=== PATIENT | female | born 1980 | race Caucasian/White ===

== ENCOUNTER 2017-12-23 09:23 | Day surgery (SDC) | payer OTHER ==
[~2017-12-23] VITALS: Ht 160 cm; Wt 74.4 kg
[~2017-12-23 09:23] MED LIST: ARIP10 PO; CEPH500 PO; HYDACE5 PO; LORA10 PO; RIZATRIPTAN10 M1 PO; RXCEPH500 PO; Xanax0.5 MG PO
== END 2017-12-23 13:08 | disposition home or self-care (01) ==
LOC: ORSCMMR 09:23
PROVIDERS: Obstetrics & Gynecology
PROC: 0UT74ZZ Resection of Bilateral Fallopian Tubes, Percutaneous Endoscopic Approach (ICD-10-PCS; principal; 2017-12-23 10:00)
PROC: 0UT14ZZ Resection of Left Ovary, Percutaneous Endoscopic Approach (ICD-10-PCS; principal; 2017-12-23 10:00)
DX: R10.2 Pelvic and perineal pain (principal); Z87.42 Personal history of other diseases of the female genital tract; N73.6 Female pelvic peritoneal adhesions (postinfective); F17.210 Nicotine dependence, cigarettes, uncomplicated
CPT/HCPCS: 88305; J0171; J1100; J2250; J2405; J2710; J2765; J3010; J7120

== ENCOUNTER 2018-03-21 20:57 | Emergency (ER) | payer OTHER ==
[~2018-03-21] VITALS: Ht 160 cm; Wt 73.0 kg
[2018-03-21 22:10] LABS: Source, Urine Clean Catch
[2018-03-21 22:12] LABS: Bilirubin, Urine Neg (Neg); Blood, Urine Neg (Neg); Glucose Qualitative, Urine Neg (Neg); Ketones, Urine Neg (Neg); Leukocyte Esterase, Urine Neg (Neg); Nitrite, Urine Neg (Neg); Protein, Urine Neg (Neg); Specific Gravity, Urine 1.015 (1.003-1.022); Urobilinogen, Urine NORM (Normal)
[2018-03-21 22:19] LABS: Appearance, Urine Clear (Clear); Color, Urine Yellow (P-Yellow)
== END 2018-03-21 23:50 | disposition home or self-care (01) ==
LOC: ER 20:57
DX: R14.0 Abdominal distension (gaseous) (principal); Z88.0 Allergy status to penicillin; Z88.8 Allergy status to other drugs, medicaments and biological substances
CPT/HCPCS: 36415; 81003; 81025; 96360; 99283; J7030

== ENCOUNTER → 2018-03-21 | Outpatient (CLI) | payer OTHER ==
[2018-03-21 19:24] LABS: BASOPHILS ABSOLUTE AUTO 0.03 K/mm3 (0.00-0.23); BASOPHILS PERCENT AUTO 0 % (0-2); EOSINOPHILS ABSOLUTE AUTO 0.12 K/mm3 (0.00-0.68); EOSINOPHILS PERCENT AUTO 1 % (0-6); Hematocrit 36.5 % (33.0-51.0); Hemoglobin 12.4 g/dL (11.5-16.0); IMMATURE GRAN ABSOLUTE AUTO 0.02 K/mm3 (0.00-0.10); IMMATURE GRAN PERCENT AUTO 0 % (0-1); LYMPHOCYTES ABSOLUTE AUTO 2.03 K/mm3 (0.84-5.20); LYMPHOCYTES PERCENT AUTO 21 % (21-46); MONOCYTES PERCENT AUTO 4 % (4-13); Mean Corpuscular HGB 28.4 pg (26.0-34.0); Mean Corpuscular Volume 84 fL (80-100); Mean Platelet Volume 10.7 fL (9.1-12.4); NEUTROPHILS ABSOLUTE AUTO 6.89 K/mm3 (1.96-9.15); NEUTROPHILS PERCENT AUTO 73 % (41-73); Platelet Count 320 K/mm3 (150-400); RDW Standard Deviation 39.2 fL (35.1-46.3); Red Blood Cell Count 4.37 M/mm3 (3.80-5.20); White Blood Cell Count 9.49 K/mm3 (4.00-11.30)
[2018-03-21 19:43] LABS: Alanine Aminotransfer (ALT/SGP 17 U/L (12-78); Albumin, Blood 3.9 g/dL (3.4-5.0); Alk Phos 89 U/L (40-126); Anion Gap 9 mmol/L (6-16); Aspartate Aminotrans (AST/SGOT 12 U/L (12-37); Bilirubin, Total 0.3 mg/dL (0.1-1.0); Blood Urea Nitrogen 12 mg/dL (8-24); Bun/Creatinine Ratio 13.2 (12.0-20.0); CO2, Blood 28 mmol/L (21-32); Calcium, Blood 9.2 mg/dL (8.5-10.1); Chloride, Blood 104 mmol/L (98-108); Creatinine, Blood 0.91 mg/dL (0.40-1.00); Glomerular Filtration Rate >60 (60-); Glucose, Blood 104 mg/dL (70-99); Potassium, Blood 3.6 mmol/L (3.5-5.5); Sodium, Blood 141 mmol/L (136-145); Thyroid Stimulating Hormone 2.711 uIU/mL (0.360-4.800); Total Protein, Blood 7.9 g/dL (6.4-8.2)
== END ==
LOC: LAB SHORT 19:18 → LAB EV 19:18
PROVIDERS: Physician Assistant
DX: R10.9 Unspecified abdominal pain (principal); R53.83 Other fatigue
CPT/HCPCS: 80053; 84443; 85025

== ENCOUNTER → 2018-07-17 | Outpatient (CLI) | payer OTHER | LOC: LAB EV 17:50 → LAB SHORT 17:50 | DX: N30.01 Acute cystitis with hematuria (principal) | CPT/HCPCS: 87077; 87086; 87186 ==

== ENCOUNTER 2019-02-09 11:13 | Day surgery (SDC) | payer OTHER ==
[~2019-02-09] VITALS: Ht 160 cm; Wt 71.6 kg
--- NOTE | 2019-02-09 12:24 | NUR ---
Ambulatory in Day Surgery Lungs clear T/O to Auscultation. History, Chart, Medications and Allergies reviewed before start of procedure. Patient confirms NPO status and agrees with scheduled surgery. Patient States Post-Procedure ride home has been arranged.
--- NOTE | 2019-02-09 16:48 | NUR ---
1453 recieved patient from pacu, awake, smiling states no pain. scant vaginal bleeding, po fluids given,aleisha well. 1510 bladder trial begun 300 cc of sterile water slowly pushed into bladder. 300cc sterile water in and 200 cc red urine out. 1 large clot noted. Pt states no pain. 400cc yellow urine in arriaga catheter. 1600 pt ambulate to bathroom steady on feet, voided pink urine. 1610 dc instructs given, pt and spouse verbalize understanding
--- NOTE | 2019-02-10 08:57 | NUR ---
02/10/19 0857 Jaquelin Collins VERIFICATIONS: EDIT CHART.
== END 2019-02-09 22:51 | disposition home or self-care (01) ==
LOC: ORSCMMR 11:13 → ORD 11:30 → ORSCMMR 12:30
PROVIDERS: Obstetrics & Gynecology
PROC: 0TSD0ZZ Reposition Urethra, Open Approach (ICD-10-PCS; principal; 2019-02-09 13:30)
DX: N39.3 Stress incontinence (female) (male) (principal); Z86.73 Personal history of transient ischemic attack (TIA), and cerebral infarction without residual deficits; Z87.891 Personal history of nicotine dependence; Z79.899 Other long term (current) drug therapy
CPT/HCPCS: C1771; J1100; J1885; J1956; J2250; J2370; J2405; J3010; J7120

== ENCOUNTER → 2019-05-19 | Outpatient (CLI) | payer OTHER ==
[2019-05-21 13:07] LABS: HPV 16 Negative (Negative); HPV 18 Negative (Negative); HPV OTHER HR TYPES Negative (Negative)
== END | disposition home or self-care (01) ==
LOC: LAB 12:25 → LAB SHORT 12:25
PROVIDERS: Obstetrics & Gynecology
DX: Z01.419 Encounter for gynecological examination (general) (routine) without abnormal findings (principal); Z87.410 Personal history of cervical dysplasia
CPT/HCPCS: 87624; G0123

== ENCOUNTER → 2019-09-25 | Outpatient (CLI) | payer OTHER ==
[2019-09-25 08:23] LABS: BASOPHILS ABSOLUTE AUTO 0.03 K/mm3 (0.00-0.23); BASOPHILS PERCENT AUTO 0 % (0-2); EOSINOPHILS ABSOLUTE AUTO 0.12 K/mm3 (0.00-0.68); EOSINOPHILS PERCENT AUTO 1 % (0-6); Hematocrit 37.6 % (33.0-51.0); Hemoglobin 12.4 g/dL (11.5-16.0); IMMATURE GRAN ABSOLUTE AUTO 0.04 K/mm3 (0.00-0.10); IMMATURE GRAN PERCENT AUTO 0 % (0-1); LYMPHOCYTES ABSOLUTE AUTO 1.43 K/mm3 (0.84-5.20); LYMPHOCYTES PERCENT AUTO 13 % (21-46); MONOCYTES ABSOLUTE AUTO 0.55 K/mm3 (0.16-1.47); MONOCYTES PERCENT AUTO 5 % (4-13); Mean Corpuscular HGB 28.3 pg (26.0-34.0); Mean Corpuscular Volume 86 fL (80-100); Mean Platelet Volume 10.9 fL (9.1-12.4); NEUTROPHILS ABSOLUTE AUTO 8.92 K/mm3 (1.96-9.15); NEUTROPHILS PERCENT AUTO 80 % (41-73); Platelet Count 301 K/mm3 (150-400); RDW Coefficient Variation 12.7 % (11.7-14.2); RDW Standard Deviation 39.4 fL (35.1-46.3); Red Blood Cell Count 4.38 M/mm3 (3.80-5.20); White Blood Cell Count 11.09 K/mm3 (4.00-11.30)
[2019-09-25 08:35] LABS: Alanine Aminotransfer (ALT/SGP 11 U/L (12-78); Albumin, Blood 3.6 g/dL (3.4-5.0); Albumin/Globulin Ratio 0.8 (0.8-1.8); Alk Phos 92 U/L (40-126); Anion Gap 9 mmol/L (6-16); Aspartate Aminotrans (AST/SGOT 13 U/L (12-37); Bilirubin, Total 0.5 mg/dL (0.1-1.0); Blood Urea Nitrogen 10 mg/dL (8-24); CO2, Blood 26 mmol/L (21-32); CPK Creatine Kinase 53 U/L (26-192); Calcium, Blood 8.8 mg/dL (8.5-10.1); Chloride, Blood 105 mmol/L (98-108); Creatinine, Blood 0.77 mg/dL (0.40-1.00); Globulin, Blood 4.3 g/dL (2.2-4.0); Glomerular Filtration Rate >60 (60-); Glucose, Blood 101 mg/dL (70-99); Potassium, Blood 3.9 mmol/L (3.5-5.5); Sodium, Blood 140 mmol/L (136-145); Total Protein, Blood 7.9 g/dL (6.4-8.2); Troponin I <0.017 ng/mL (0.000-0.040)
== END | disposition home or self-care (01) ==
LOC: LAB EV 08:16 → LAB SHORT 08:16
PROVIDERS: General Practice
DX: R07.9 Chest pain, unspecified (principal)
CPT/HCPCS: 80053; 82550; 84484; 85025; 85379

== ENCOUNTER 2021-09-30 00:04 | Emergency (ER) | payer OTHER ==
[~2021-09-30] VITALS: Ht 160 cm; Wt 79.4 kg
[2021-09-30] MEDS ORDERED: CYCL10 PO (01:54)
[2021-09-30] MEDS ORDERED: GABA300 PO (01:59)
[2021-09-30] MEDS ORDERED: ESTRADIOL1 EAC2 TOP (02:00)
[2021-09-30] MEDS ORDERED: DULO30 PO (02:00)
[2021-09-30] MEDS ORDERED: Prevacid Soluta30 MG PO (02:00)
== END 2021-09-30 02:00 | disposition home or self-care (01) ==
LOC: ER 00:04
DX: M54.50 Low back pain, unspecified (principal); R07.89 Other chest pain; M06.9 Rheumatoid arthritis, unspecified; Z87.891 Personal history of nicotine dependence; Z88.0 Allergy status to penicillin; V89.2XXA Person injured in unspecified motor-vehicle accident, traffic, initial encounter
CPT/HCPCS: 71046; 72100; 93005; 93010; 99283-25

== ENCOUNTER → 2022-02-06 | Outpatient (CLI) | payer OTHER ==
[~2022-02-06] MED LIST changes: +CYCL10 PO; +DULO30 PO; +ESTRADIOL1 EAC2 TOP; +GABA300 PO; +Prevacid Soluta30 MG PO
[2022-02-07 16:11] LABS: HPV 16 Negative (Negative); HPV 18 Negative (Negative); HPV OTHER HR TYPES Negative (Negative)
== END | disposition home or self-care (01) ==
LOC: LAB SHORT 11:43 → LAB 11:43
PROVIDERS: Obstetrics & Gynecology
DX: Z01.419 Encounter for gynecological examination (general) (routine) without abnormal findings (principal)
CPT/HCPCS: 87624; G0123

== ENCOUNTER 2022-05-15 16:20 | Emergency (ER) | payer OTHER ==
[~2022-05-15] VITALS: Ht 160 cm; Wt 77.1 kg
[2022-05-15] MEDS ORDERED: KETO10 PO (17:38)
== END 2022-05-15 17:47 | disposition home or self-care (01) ==
LOC: ER 16:20
DX: M79.674 Pain in right toe(s) (principal); I77.6 Arteritis, unspecified; Z88.0 Allergy status to penicillin; Z88.8 Allergy status to other drugs, medicaments and biological substances; Z79.899 Other long term (current) drug therapy; Z87.891 Personal history of nicotine dependence
CPT/HCPCS: 96372; 99282-25; J1885

== ENCOUNTER 2022-07-09 15:28 | Emergency (ER) | payer OTHER ==
[~2022-07-09] VITALS: Ht 160 cm; Wt 79.4 kg
[~2022-07-09 15:28] MED LIST changes: +KETO10 PO
[2022-07-09] MEDS ORDERED: DULO30 PO (15:40)
== END 2022-07-09 15:45 | disposition home or self-care (01) ==
LOC: ER 15:28
DX: Z76.0 Encounter for issue of repeat prescription (principal); F41.9 Anxiety disorder, unspecified; M06.9 Rheumatoid arthritis, unspecified; Z79.899 Other long term (current) drug therapy; Z88.0 Allergy status to penicillin; Z88.8 Allergy status to other drugs, medicaments and biological substances; Z87.891 Personal history of nicotine dependence
CPT/HCPCS: 99281

== ENCOUNTER 2022-07-27 09:30 | Emergency (ER) | payer OTHER ==
[~2022-07-27] VITALS: Ht 160 cm; Wt 77.1 kg
[2022-07-27 11:19] LABS: Albumin, Blood 3.3 g/dL (3.4-5.0); Albumin/Globulin Ratio 0.8 (0.8-1.8); Bilirubin, Total 0.3 mg/dL (0.1-1.0); Bun/Creatinine Ratio 20.8 (12.0-20.0); Calcium, Blood 9.3 mg/dL (8.5-10.1); Creatinine, Blood 0.58 mg/dL (0.40-1.00); Globulin, Blood 4.4 g/dL (2.2-4.0); Total Protein, Blood 7.7 g/dL (6.4-8.2)
[2022-07-27 11:30] LABS: BASOPHILS ABSOLUTE AUTO 0.03 K/mm3 (0.00-0.23); BASOPHILS PERCENT AUTO 0 % (0-2); EOSINOPHILS ABSOLUTE AUTO 0.08 K/mm3 (0.00-0.68); EOSINOPHILS PERCENT AUTO 1 % (0-6); Hematocrit 34.7 % (33.0-51.0); Hemoglobin 11.5 g/dL (11.5-16.0); IMMATURE GRAN ABSOLUTE AUTO 0.02 K/mm3 (0.00-0.10); IMMATURE GRAN PERCENT AUTO 0 % (0-1); LYMPHOCYTES PERCENT AUTO 18 % (21-46); MONOCYTES ABSOLUTE AUTO 0.36 K/mm3 (0.16-1.47); MONOCYTES PERCENT AUTO 5 % (4-13); Mean Corpuscular HGB Conc 33.1 g/dL (31.5-36.5); Mean Corpuscular Volume 87 fL (80-100); Mean Platelet Volume 9.8 fL (9.1-12.4); NEUTROPHILS PERCENT AUTO 75 % (41-73); Platelet Count 272 K/mm3 (150-400); RDW Coefficient Variation 12.9 % (11.7-14.2); RDW Standard Deviation 40.9 fL (35.1-46.3); Red Blood Cell Count 3.97 M/mm3 (3.80-5.20); White Blood Cell Count 7.19 K/mm3 (4.00-11.30)
[2022-07-27 12:12] LABS: Source, Urine Clean Catch
[2022-07-27 12:25] LABS: Appearance, Urine Hazy (Clear); Bilirubin, Urine Neg (Neg); Blood, Urine Neg (Neg); Color, Urine Yellow (P-Yellow); Glucose Qualitative, Urine Neg (Neg); Ketones, Urine Neg (Neg); Leukocyte Esterase, Urine Neg (Neg); Nitrite, Urine Neg (Neg); Protein, Urine Neg (Neg); Urobilinogen, Urine NORM (Normal)
[2022-07-27 13:06] LABS: Red Blood Cells, Urine 0-2 /hpf (0-2); Squamous Epithelial Cells Many /hpf (Few)
[2022-07-27 13:07] LABS: Bacteria Few /hpf
== END 2022-07-27 14:11 | disposition home or self-care (01) ==
LOC: ER 09:30
PROVIDERS: Emergency Medicine; Physician Assistant
DX: M54.50 Low back pain, unspecified (principal); Z88.0 Allergy status to penicillin; Z88.8 Allergy status to other drugs, medicaments and biological substances; Z79.899 Other long term (current) drug therapy; Z87.891 Personal history of nicotine dependence
CPT/HCPCS: 36415; 74176; 80053; 81001; 81025; 83690; 85025; J1885; J2405; J7030

== ENCOUNTER → 2022-08-13 | Outpatient (CLI) | payer OTHER | END | disposition home or self-care (01) | LOC: LAB 17:10 → LAB SHORT 17:10 | DX: N39.0 Urinary tract infection, site not specified (principal) | CPT/HCPCS: 87077; 87086; 87186 ==

== ENCOUNTER 2022-09-11 11:26 | Inpatient (IN) | payer OTHER ==
[~2022-09-11] VITALS: Ht 160 cm; Wt 82.5 kg
[~2022-09-11 11:26] MED LIST changes: +ESTR2 PO; -ESTRADIOL1 EAC2 TOP
[2022-09-11] MEDS ORDERED: Celexa20 MG PO (11:35)
[2022-09-11 12:25] LABS: Influenza A, PCR NEGATIVE (NEGATIVE); Influenza B, PCR NEGATIVE (NEGATIVE); Resp Syncytial Virus, PCR NEGATIVE (NEGATIVE); SARS-Cov-2 (COVID-19) PCR, MMC NEGATIVE (NEGATIVE)
[2022-09-11 13:39] LABS: BASOPHILS ABSOLUTE AUTO 0.01 K/mm3 (0.00-0.23); BASOPHILS PERCENT AUTO 0 % (0-2); EOSINOPHILS ABSOLUTE AUTO 0.01 K/mm3 (0.00-0.68); EOSINOPHILS PERCENT AUTO 0 % (0-6); Hematocrit 36.1 % (33.0-51.0); Hemoglobin 11.7 g/dL (11.5-16.0); IMMATURE GRAN ABSOLUTE AUTO 0.03 K/mm3 (0.00-0.10); IMMATURE GRAN PERCENT AUTO 0 % (0-1); LYMPHOCYTES ABSOLUTE AUTO 0.76 K/mm3 (0.84-5.20); LYMPHOCYTES PERCENT AUTO 9 % (21-46); MONOCYTES ABSOLUTE AUTO 0.44 K/mm3 (0.16-1.47); MONOCYTES PERCENT AUTO 5 % (4-13); Mean Corpuscular HGB 27.9 pg (26.0-34.0); Mean Corpuscular HGB Conc 32.4 g/dL (31.5-36.5); Mean Corpuscular Volume 86 fL (80-100); Mean Platelet Volume 10.1 fL (9.1-12.4); NEUTROPHILS ABSOLUTE AUTO 7.73 K/mm3 (1.96-9.15); NEUTROPHILS PERCENT AUTO 86 % (41-73); Platelet Count 209 K/mm3 (150-400); RDW Coefficient Variation 12.4 % (11.7-14.2); Red Blood Cell Count 4.19 M/mm3 (3.80-5.20); White Blood Cell Count 8.98 K/mm3 (4.00-11.30)
[2022-09-11 13:53] LABS: Albumin/Globulin Ratio 0.8 (0.8-1.8); Bilirubin, Total 0.5 mg/dL (0.1-1.0); Bun/Creatinine Ratio 7.7 (12.0-20.0); Calcium, Blood 8.8 mg/dL (8.5-10.1); Creatinine, Blood 0.91 mg/dL (0.40-1.00); Potassium, Blood 3.2 mmol/L (3.5-5.5)
[2022-09-11 14:35] LABS: Glucose, CSF 67 mg/dL (40-70)
[2022-09-11 15:24] LABS: RBC Count, CSF 306 /mm3 (0-0); WBC Count, CSF 2 /mm3 (0-5)
[2022-09-11 15:50] LABS: Appearance, CSF Clear (Clear); Color, CSF No Color (No Color); RBC Count, CSF 2 /mm3 (0-0); WBC Count, CSF 0 /mm3 (0-5)
[2022-09-11 15:52] LABS: Appearance, CSF Clear (Clear); Color, CSF No Color (No Color)
[2022-09-11 16:29] LABS: Cryptococcus Neoformans/Gattii Not Detected (NOT DETECT); Enterovirus Not Detected (NOT DETECT); Escherichia Coli K1 Detected (NOT DETECT); Haemophilus Influenza Not Detected (NOT DETECT); Herpes Simplex Virus 1 Not Detected (NOT DETECT); Herpes Simplex Virus 2 Not Detected (NOT DETECT); Human Herpesvirus 6 Not Detected (NOT DETECT); Human Parechovirus Not Detected (NOT DETECT); Listeria Monocytogenes Not Detected (NOT DETECT); Neisseria Meningitidis Not Detected (NOT DETECT); Streptococcus Agalactiae Not Detected (NOT DETECT); Streptococcus Pneumoniae Not Detected (NOT DETECT); Varicella Zoster Virus Not Detected (NOT DETECT)
[2022-09-11 17:43] LABS: Source, Urine Voided
[2022-09-11 17:51] LABS: Appearance, Urine Clear (Clear); Bilirubin, Urine Neg (Neg); Blood, Urine Neg (Neg); Color, Urine Amber (P-Yellow); Glucose Qualitative, Urine Neg (Neg); Ketones, Urine Neg (Neg); Leukocyte Esterase, Urine 1+ (Neg); Nitrite, Urine Neg (Neg); Protein, Urine Neg (Neg); Specific Gravity, Urine 1.015 (1.003-1.022); Urobilinogen, Urine NORM (Normal)
[2022-09-11 18:21] LABS: Bacteria Many /hpf; Hyaline Casts 0-2 /lpf (0-2); Mucus Mod (0-Heavy); Red Blood Cells, Urine 0-2 /hpf (0-2); Squamous Epithelial Cells Rare /hpf (Few); White Blood Cells, Urine 0-2 /hpf (0-5)
--- NOTE | 2022-09-12 02:26 | NUR ---
ADMIT NOTE 42 YR OLD FEMALE ADMITTED TO FLOOR FROM THE ED EARLIER WITH DX MENINGITIS DUE TO E COLI. ED RN REPORTED PT HAD HEADACHE AND FEVER FOR 2 DAYS PRIOR TO COMING IN TO THE ED. ALSO REPORTED STIFF NECK AND ACHES AND N/V. PLACED ON CONTACT PRECAUTIONS FOR BACTERIAL MENINGITIS. ORIENTED TO USE OF CALL LIGHT. CALL LIGHT IN REACH. PT REQUESTED STRONGER ANALGESIC FOR RUBIN, NECK AND BACK PAIN. MD WAS NOTIFIED AND MORPHINE WAS ORDERED - SEE MAR FOR DETAILS. RAILS UP X 3. WILL CONTINUE TO MONITOR
--- NOTE | 2022-09-12 03:42 | NUR ---
MEDICARE SALES REPRESENTATIVE SUMMARY WAS ADMITTED EARLIER IN THE SHIFT WITH MEININGITIS, ON PRECAUTIONS. INTERMITTENT HEADACHE, NECK STIFFNESS AND DISCOMFORT. ANALGESICS ADMINISTERED - SEE MAR FOR DETAILS. CALL LIGHT IN REACH. ASSISTED TO AND FROM THE BR. SOME UNSTEADINESS NOTED. WILL CONTINUE TO MONITOR.
[2022-09-12 05:06] LABS: BASOPHILS ABSOLUTE AUTO 0.01 K/mm3 (0.00-0.23); BASOPHILS PERCENT AUTO 0 % (0-2); EOSINOPHILS ABSOLUTE AUTO 0.02 K/mm3 (0.00-0.68); EOSINOPHILS PERCENT AUTO 0 % (0-6); Hematocrit 31.4 % (33.0-51.0); Hemoglobin 10.3 g/dL (11.5-16.0); IMMATURE GRAN ABSOLUTE AUTO 0.02 K/mm3 (0.00-0.10); IMMATURE GRAN PERCENT AUTO 0 % (0-1); LYMPHOCYTES ABSOLUTE AUTO 0.55 K/mm3 (0.84-5.20); LYMPHOCYTES PERCENT AUTO 9 % (21-46); MONOCYTES ABSOLUTE AUTO 0.27 K/mm3 (0.16-1.47); MONOCYTES PERCENT AUTO 4 % (4-13); Mean Corpuscular HGB 28.4 pg (26.0-34.0); Mean Corpuscular HGB Conc 32.8 g/dL (31.5-36.5); Mean Corpuscular Volume 87 fL (80-100); Mean Platelet Volume 10.4 fL (9.1-12.4); NEUTROPHILS ABSOLUTE AUTO 5.38 K/mm3 (1.96-9.15); NEUTROPHILS PERCENT AUTO 86 % (41-73); Platelet Count 192 K/mm3 (150-400); RDW Coefficient Variation 12.5 % (11.7-14.2); RDW Standard Deviation 40.1 fL (35.1-46.3); Red Blood Cell Count 3.63 M/mm3 (3.80-5.20); White Blood Cell Count 6.25 K/mm3 (4.00-11.30)
[2022-09-12 05:25] LABS: Magnesium, Blood 1.8 mg/dL (1.6-2.4)
[2022-09-12 05:26] LABS: Albumin, Blood 2.6 g/dL (3.4-5.0); Anion Gap 8 mmol/L (6-16); Blood Urea Nitrogen 8 mg/dL (8-24); Bun/Creatinine Ratio 9.6 (12.0-20.0); CO2, Blood 26 mmol/L (21-32); Calcium, Blood 7.9 mg/dL (8.5-10.1); Chloride, Blood 104 mmol/L (98-108); Creatinine, Blood 0.83 mg/dL (0.40-1.00); Glomerular Filtration Rate 89 (60-); Glucose, Blood 145 mg/dL (70-99); Phosphorus, Blood 1.9 mg/dL (2.5-4.9); Potassium, Blood 3.4 mmol/L (3.5-5.5); Sodium, Blood 138 mmol/L (136-145)
[2022-09-12] MEDS ORDERED: Ventolin/Prove6.7 GM INH (16:31)
--- NOTE | 2022-09-12 18:02 | NUR ---
SHIFT SUMMARY PT IS AOX4. INDEPENDENT IN THE ROOM. PT C/O NECK AND CHEST (MUSCLE) PAIN, CAUSING SHALLOW BREATHING. PT STARTED ON CONTINUOUS PULSE OX AND 2L VIA NC. PARTNER AT THE BS ALL SHIFT. PG PLACE IN THE MANDI THIS SHIFT. PT DENIES CHEST PAIN AND SOB. PT HAD A TEMPERATURE AT THE BEGINNING OF THE SHIFT BUT IS NOW WNL. BED SET IN THE LOWEST POSITION AND CALL LIGHT PLACED WITHIN REACH. WILL CONTINUE TO MONITOR AND ASSESS UNTIL NOC SHIFT NURSE ARRIVAL.
[2022-09-13 05:26] LABS: BASOPHILS ABSOLUTE AUTO 0.01 K/mm3 (0.00-0.23); BASOPHILS PERCENT AUTO 0 % (0-2); EOSINOPHILS ABSOLUTE AUTO 0.05 K/mm3 (0.00-0.68); EOSINOPHILS PERCENT AUTO 1 % (0-6); Hemoglobin 9.2 g/dL (11.5-16.0); IMMATURE GRAN ABSOLUTE AUTO 0.02 K/mm3 (0.00-0.10); IMMATURE GRAN PERCENT AUTO 0 % (0-1); LYMPHOCYTES PERCENT AUTO 9 % (21-46); MONOCYTES ABSOLUTE AUTO 0.39 K/mm3 (0.16-1.47); MONOCYTES PERCENT AUTO 5 % (4-13); Mean Corpuscular HGB 28.1 pg (26.0-34.0); Mean Corpuscular HGB Conc 32.9 g/dL (31.5-36.5); Mean Corpuscular Volume 86 fL (80-100); Mean Platelet Volume 10.2 fL (9.1-12.4); NEUTROPHILS ABSOLUTE AUTO 6.95 K/mm3 (1.96-9.15); NEUTROPHILS PERCENT AUTO 86 % (41-73); Platelet Count 181 K/mm3 (150-400); RDW Coefficient Variation 12.7 % (11.7-14.2); RDW Standard Deviation 39.8 fL (35.1-46.3); Red Blood Cell Count 3.27 M/mm3 (3.80-5.20); White Blood Cell Count 8.12 K/mm3 (4.00-11.30)
[2022-09-13 05:55] LABS: Albumin, Blood 2.3 g/dL (3.4-5.0); Anion Gap 7 mmol/L (6-16); Blood Urea Nitrogen 10 mg/dL (8-24); Bun/Creatinine Ratio 14.5 (12.0-20.0); CO2, Blood 28 mmol/L (21-32); Calcium, Blood 8.3 mg/dL (8.5-10.1); Chloride, Blood 101 mmol/L (98-108); Creatinine, Blood 0.69 mg/dL (0.40-1.00); Glomerular Filtration Rate 110 (60-); Glucose, Blood 125 mg/dL (70-99); Magnesium, Blood 2.1 mg/dL (1.6-2.4); Phosphorus, Blood 3.1 mg/dL (2.5-4.9); Potassium, Blood 3.5 mmol/L (3.5-5.5); Sodium, Blood 136 mmol/L (136-145)
--- NOTE | 2022-09-13 07:17 | NUR ---
ORACLE TECHNICAL DEVELOPER SUMMARY PT IS A/OX4. PT C/O OF CHEST PAIN THAT WORSENS ON INSPIRATION AND MOVEMENT. NOTED SHALLOW BREATHING AND CRAKLES IN THE BASES. CONTACTED RT; THEY CAME AND ASSESSED PT; CONFIRMED CRACKLES AND STATED POSSIBLE PLEURESY; RECOMMENDED INCENTIVE SPIROMETOR AND HYDRATION. EPISODE IN THE NIGHT OF THE PT CRYING OUT IN PAIN. CONTACTED --NEW ORDER FOR FENTANYL 25-50MCG Q4; ADMINISTERED DOSE WITH GOOD EFFECT. DURING EPISOED OF PAIN SYS BLOOD PRESSURE ELEVATED TO 170'S; RESOLVED AFTER PAIN MED. PT CONT ON 2L O2 VIA NC. PARTNER AT THE BEDSIDE T/O THE NIGHT. CALL LIGHT IN REACH.
[2022-09-13] MEDS ORDERED: CEFTRIAXONE2 G1 IV (16:07)
[2022-09-13] MEDS ORDERED: Atarax10 MG PO (16:07)
[2022-09-13] MEDS ORDERED: KETO10 PO (16:08)
[2022-09-13] MEDS ORDERED: ONDA4ODT MM (16:08)
[2022-09-13] MEDS ORDERED: VISBIOME 112.51 EACH PO (16:09)
--- NOTE | 2022-09-13 17:07 | NUR ---
SHIFT SUMMARY PT IS AOX4. PARTNER AT THE BS ALL DAY. SHE SPIKED A FEVER TODAY OF 102.7, THE PROVIDER WAS NOTIFIED AND AN ORDER FOR TYLENOL WAS OBTAINED. SHE HAS BEEN ENCOURAGED ALL SHIFT TO USE HER INCENTIVE SPIROMETER AND SHE HAS COMPLIED. PT REMAINS COOPERATIVE AND PLEASANT. WILL GIVE REPORT TO NOC SHIFT NURSE.
--- NOTE | 2022-09-13 22:08 | NUR ---
CALLED RESIDENT - LOW BP AT 2014 PT HAD A LOW BP OF 86/51, SHE WAS ASYMPTOMATIC. CALLED RESIDENT DR. TITUS WHO ORDERED A 1L BOLUS OF NS. AT 2152 BP WAS IMPROVED AT 111/68. WILL CTM.
--- NOTE | 2022-09-14 04:32 | NUR ---
SHIFT SUMMARY PT WAS WORRIED ABOUT A REPEAT OF LAST NIGHT'S PAIN EPISODE. STARTED C/O 10 IN HER HEAD, SHOULDERS AND BACK AROUND 2150. ADMINISTERED PAIN MEDICATIONS PER EMAR, PAIN WAS WELL CONTROLLED T/O THE NIGHT AND PT SLEPT COMFORTABLY. PT WAS HYPOTENSIVE WITH A BP OF 86/51 AT 2014. CALLED RESIDENT WHO ORDERED 1L BOLUS, BP IMPROVED TO SYSTOLIC > 100 FOR THE REST OF THE NIGHT. NO FEVER, NO C/O OF NAUSEA. PT PLEASANT AND COOPERATIVE WITH CARE.
[2022-09-14 05:30] LABS: BASOPHILS ABSOLUTE AUTO 0.02 K/mm3 (0.00-0.23); BASOPHILS PERCENT AUTO 0 % (0-2); EOSINOPHILS ABSOLUTE AUTO 0.09 K/mm3 (0.00-0.68); EOSINOPHILS PERCENT AUTO 2 % (0-6); Hematocrit 24.9 % (33.0-51.0); IMMATURE GRAN ABSOLUTE AUTO 0.03 K/mm3 (0.00-0.10); IMMATURE GRAN PERCENT AUTO 1 % (0-1); LYMPHOCYTES ABSOLUTE AUTO 1.06 K/mm3 (0.84-5.20); LYMPHOCYTES PERCENT AUTO 19 % (21-46); MONOCYTES ABSOLUTE AUTO 0.29 K/mm3 (0.16-1.47); MONOCYTES PERCENT AUTO 5 % (4-13); Mean Corpuscular HGB 28.2 pg (26.0-34.0); Mean Corpuscular HGB Conc 32.1 g/dL (31.5-36.5); Mean Corpuscular Volume 88 fL (80-100); Mean Platelet Volume 11.3 fL (9.1-12.4); NEUTROPHILS ABSOLUTE AUTO 4.22 K/mm3 (1.96-9.15); NEUTROPHILS PERCENT AUTO 74 % (41-73); Platelet Count 206 K/mm3 (150-400); RDW Coefficient Variation 12.7 % (11.7-14.2); RDW Standard Deviation 40.8 fL (35.1-46.3); Red Blood Cell Count 2.84 M/mm3 (3.80-5.20); White Blood Cell Count 5.71 K/mm3 (4.00-11.30)
[2022-09-14 05:50] LABS: Bun/Creatinine Ratio 10.5 (12.0-20.0); Calcium, Blood 7.7 mg/dL (8.5-10.1); Creatinine, Blood 0.76 mg/dL (0.40-1.00); Magnesium, Blood 2.2 mg/dL (1.6-2.4); Phosphorus, Blood 3.2 mg/dL (2.5-4.9); Potassium, Blood 3.6 mmol/L (3.5-5.5)
--- NOTE | 2022-09-14 17:54 | NUR ---
SHIFT SUMMARY PATIENT MEDICATED FOR PAIN X3. PATIENT DENIES NAUSEA AND SHORTNESS OF BREATH. PATIENT ON 2L VIA N/C. ATTEMPT TO WEAN OFF OXYGEN UNSUCCESSFUL, PATIENT DESATURATED TO 88% ON 1L. PATIENT MAINTAINS SATURATIONS AT 94% ON 2L. PATIENT IS IND IN ROOM. AT BEDSIDE ENTIRE SHIFT. PATIENT SBP LOW THIS MORNING, DR NOTIFIED, BOLUS GIVEN. PATIENT SBP IMPROVED AND SUSTAINED FOR REST OF SHIFT. PATIENT AFEBRILE THIS SHIFT. PAIN MEDICATION CHANGED AND MORE EFFECTIVE. PATIENT IS EATING AND DRINKING WELL. PATIENT IS PLEASANT AND COOPERATIVE WITH CARE.
--- NOTE | 2022-09-15 04:34 | NUR ---
PT REQUEST NO CONT. BI-OX PT WAS TRYING TO SLEEP AND LAYING ON HER ARM WHICH IS CONNECTED TO THE CONTINUOUS O2 MONITOR. MONITOR KEPT BEEPING AND PT REFUSES TO HAVE THE MONITOR ON FOR THE REMAINDER OF THE NIGHT SO SHE CAN SLEEP. O2 SAT 97% BEFORE MACHINE TURNED OFF, PT ON 2L O2 VIA NC.
[2022-09-15 05:58] LABS: BASOPHILS ABSOLUTE AUTO 0.02 K/mm3 (0.00-0.23); BASOPHILS PERCENT AUTO 0 % (0-2); EOSINOPHILS ABSOLUTE AUTO 0.17 K/mm3 (0.00-0.68); EOSINOPHILS PERCENT AUTO 2 % (0-6); Hematocrit 27.5 % (33.0-51.0); Hemoglobin 8.5 g/dL (11.5-16.0); IMMATURE GRAN ABSOLUTE AUTO 0.07 K/mm3 (0.00-0.10); IMMATURE GRAN PERCENT AUTO 1 % (0-1); LYMPHOCYTES ABSOLUTE AUTO 1.16 K/mm3 (0.84-5.20); LYMPHOCYTES PERCENT AUTO 17 % (21-46); MONOCYTES ABSOLUTE AUTO 0.26 K/mm3 (0.16-1.47); MONOCYTES PERCENT AUTO 4 % (4-13); Mean Corpuscular HGB 27.1 pg (26.0-34.0); Mean Corpuscular HGB Conc 30.9 g/dL (31.5-36.5); Mean Corpuscular Volume 88 fL (80-100); Mean Platelet Volume 10.7 fL (9.1-12.4); NEUTROPHILS ABSOLUTE AUTO 5.35 K/mm3 (1.96-9.15); NEUTROPHILS PERCENT AUTO 76 % (41-73); Platelet Count 297 K/mm3 (150-400); RDW Coefficient Variation 12.6 % (11.7-14.2); RDW Standard Deviation 40.5 fL (35.1-46.3); Red Blood Cell Count 3.14 M/mm3 (3.80-5.20); White Blood Cell Count 7.03 K/mm3 (4.00-11.30)
[2022-09-15 06:20] LABS: Albumin, Blood 2.1 g/dL (3.4-5.0); Anion Gap 6 mmol/L (6-16); Blood Urea Nitrogen 6 mg/dL (8-24); CO2, Blood 28 mmol/L (21-32); Chloride, Blood 103 mmol/L (98-108); Creatinine, Blood 0.67 mg/dL (0.40-1.00); Glomerular Filtration Rate 110 (60-); Glucose, Blood 92 mg/dL (70-99); Magnesium, Blood 1.7 mg/dL (1.6-2.4); Potassium, Blood 3.6 mmol/L (3.5-5.5); Sodium, Blood 137 mmol/L (136-145)
--- NOTE | 2022-09-15 07:22 | NUR ---
SHIFT SUMMARY PT'S PAIN WAS WELL CONTROLLED WITH PRN TORADOL AND PRN TRAMADOL PER EMAR. AT APROX 0500 PT O2 WAS DESATURATING DOWN TO 87 WHILE SHE WAS TRYING TO SLEEP. INCREASED O2 TO 3L, SAT HEAD OF BED UP AND ENCOURAGED DEEP BREATHING. PT'S PARTNER IS IN THE ROOM WITH HER. RCVD IV ABX. NO DROPS IN BP OR SPIKES OF FEVER. PT PLEASANT AND COOPERATIVE WITH CARE.
--- NOTE | 2022-09-15 18:39 | NUR ---
ALERT AND ORIENTED, MAKES NEEDS KNOWN, FAMILY AT BEDSIDE, PATIENT WANTING LESS PAIN MEDICATIONS, MEDICATED FOR NAUSEA WITH ZOFRAN, REFUSED POSSIBLE IMITREX OR ICE PACK FOR H/A. DR PAULINO ROUNDED ON PATIENT, POSSIBLE DISCHARGE ON SATURDAY, NO ACUTE CHANGES, WCTM
--- NOTE | 2022-09-16 05:08 | NUR ---
SHIFT SUMMARY PATIENT ALERT AND ORIENTED. MEDICATED PER EMAR FOR PAIN. HAD NO COMPLAINTS OF PAIN OR SHORTNESS OF BREATH. NO ACUTE ISSUES NOTED OVERNIGHT. CALL LIGHT WITHIN REACH. REPORT GIVEN TO ONCOMING RN.
[2022-09-16 05:31] LABS: BASOPHILS ABSOLUTE AUTO 0.01 K/mm3 (0.00-0.23); BASOPHILS PERCENT AUTO 0 % (0-2); EOSINOPHILS ABSOLUTE AUTO 0.16 K/mm3 (0.00-0.68); EOSINOPHILS PERCENT AUTO 3 % (0-6); Hematocrit 26.4 % (33.0-51.0); Hemoglobin 8.6 g/dL (11.5-16.0); IMMATURE GRAN ABSOLUTE AUTO 0.12 K/mm3 (0.00-0.10); IMMATURE GRAN PERCENT AUTO 2 % (0-1); LYMPHOCYTES ABSOLUTE AUTO 1.11 K/mm3 (0.84-5.20); LYMPHOCYTES PERCENT AUTO 23 % (21-46); MONOCYTES ABSOLUTE AUTO 0.24 K/mm3 (0.16-1.47); MONOCYTES PERCENT AUTO 5 % (4-13); Mean Corpuscular HGB Conc 32.6 g/dL (31.5-36.5); Mean Corpuscular Volume 86 fL (80-100); Mean Platelet Volume 10.1 fL (9.1-12.4); NEUTROPHILS ABSOLUTE AUTO 3.28 K/mm3 (1.96-9.15); NEUTROPHILS PERCENT AUTO 67 % (41-73); NRBC ABSOLUTE 0.02 K/mm3 (0.00-0.02); NRBC Auto 0.4 /100 WBC (0.0-0.2); Platelet Count 308 K/mm3 (150-400); RDW Coefficient Variation 12.4 % (11.7-14.2); RDW Standard Deviation 39.2 fL (35.1-46.3); Red Blood Cell Count 3.07 M/mm3 (3.80-5.20); White Blood Cell Count 4.92 K/mm3 (4.00-11.30)
[2022-09-16 05:54] LABS: Bun/Creatinine Ratio 6.6 (12.0-20.0); Calcium, Blood 8.5 mg/dL (8.5-10.1); Creatinine, Blood 0.6 mg/dL (0.40-1.00); Magnesium, Blood 1.9 mg/dL (1.6-2.4); Potassium, Blood 3.4 mmol/L (3.5-5.5)
--- NOTE | 2022-09-16 08:00 | NUR ---
pt sitting on the side of the bed awake a/ox3, pleasant and coopertive with care, follows commands well, denies pain at this time, encouraged to let this nurse know when h/a starts so we can keep on top of pain meds, lungs are clear, dim in bases, resp even and unlabored at rest, is currently on two liters 02 via n/c, reports she desats with activity, no cough noted, hrr, trace edema noted to b/l le, ppp+2, cap refill <3sec, vs stable, afebrile, iv site is power glide to tammie, site is clear and patent, btx4, abd round soft nontender, voids without diff, skin c/w/d, maew, up ad juan alberto, evita, call light in reach.
--- NOTE | 2022-09-16 18:02 | NUR ---
Pt has had an uneventful day, medicated once for headache pain, visitor in room most of the day, no acute changes or needs. call light in reach.
[2022-09-17 04:39] LABS: BASOPHILS ABSOLUTE AUTO 0.02 K/mm3 (0.00-0.23); BASOPHILS PERCENT AUTO 0 % (0-2); EOSINOPHILS PERCENT AUTO 3 % (0-6); Hematocrit 31.6 % (33.0-51.0); Hemoglobin 9.9 g/dL (11.5-16.0); IMMATURE GRAN ABSOLUTE AUTO 0.24 K/mm3 (0.00-0.10); IMMATURE GRAN PERCENT AUTO 4 % (0-1); LYMPHOCYTES ABSOLUTE AUTO 1.14 K/mm3 (0.84-5.20); LYMPHOCYTES PERCENT AUTO 17 % (21-46); MONOCYTES ABSOLUTE AUTO 0.29 K/mm3 (0.16-1.47); MONOCYTES PERCENT AUTO 4 % (4-13); Mean Corpuscular HGB Conc 31.3 g/dL (31.5-36.5); Mean Corpuscular Volume 86 fL (80-100); Mean Platelet Volume 9.8 fL (9.1-12.4); NEUTROPHILS ABSOLUTE AUTO 4.74 K/mm3 (1.96-9.15); NEUTROPHILS PERCENT AUTO 72 % (41-73); Platelet Count 405 K/mm3 (150-400); RDW Coefficient Variation 12.2 % (11.7-14.2); RDW Standard Deviation 38.7 fL (35.1-46.3); Red Blood Cell Count 3.66 M/mm3 (3.80-5.20); White Blood Cell Count 6.63 K/mm3 (4.00-11.30)
[2022-09-17 05:00] LABS: Bun/Creatinine Ratio 6.8 (12.0-20.0); Calcium, Blood 9.1 mg/dL (8.5-10.1); Creatinine, Blood 0.59 mg/dL (0.40-1.00); Potassium, Blood 3.8 mmol/L (3.5-5.5)
--- NOTE | 2022-09-17 05:47 | NUR ---
SHIFT SUMMARY PATIENT ALERT AND ORIENTED. MEDICATED PER EMAR FOR PAIN. HAD NO COMPLAINTS OF SHORTNESS OF BREATH, ALTHOUGH REQUIRED OXYGEN TO BE INCREASED TO 4 LITERS VIA NASAL CANULA TO MAINTAIN O2 ABOVE 90%. ENCOURAGED USE OF INCENTIVE SPIROMETER. CALL LIGHT WITHIN REACH. REPORT GIVEN TO ONCOMING RN.
--- NOTE | 2022-09-17 18:38 | NUR ---
SHIFT SUMMARY PT INDEPENDENT IN ROOM. REPORTS HEADACHE ONCE THIS AFTERNOON WHICH SHE NAPPED AFTER TAKING. PLANS TO DISCHARGE ON HOLD TIL IV ANTIBIOTIC AVAILABLE FOR HER TO TAKE HOME. DID ORAL INSTRUCTION ON GIVING HERSELF HER ANTIBIOTIC. EXPRESSED CONFIDENCE IN ABILITY AND WAS ABLE TO EXPLAIN PROCESSES OF HOW TO GIVE HERSELF THE IV ANTIBIOTIC. HOME O2 [facility]ERRAAL COMPLETED AND WILLIAM DELIVERED A TANK OF O2 FOR HOME.
--- NOTE | 2022-09-18 04:33 | NUR ---
SHIFT SUMMARY PATIENT IS ALERT AND ORIENTED. PATIENT HAS HAD NO ACUTE EVENTS THIS SHIFT. VITAL SIGNS REVIEWED. PATIENT HAS BEEN IND IN ROOM AND PATIENT TOOK A SHOWER THIS EVENING. PATIENT HAS COMPLAINED OF HEADACHE, MEDICATED PER EMAR. PATIENT HAS NOT COMPLAINED OF SOB, NAUSEA, OR VOMITTING THIS SHIFT. PATIENTS GF HAS BEEN IN ROOM ALL SHIFT WITH NO INCIDENTS. BED IN LOCKED AND LOWEST POSITION. CALL LIGHT IN REACH.
[2022-09-18] MEDS ORDERED: TRAM50 PO (12:24)
--- NOTE | 2022-09-18 13:45 | NUR ---
DISCHARGE INSTRUCTIONS COMPLETED AND DISCUSSED WITH PT EXPRESSING UNDERSTANDING. SCRIPTS FAXED TO [facility] AND ERICKA CALLED IN PER DR. RODRIGUEZ. BELONGINGS AND PAPERWORK WITH PT ON DISCHARGE. HOME O2 ALREADY SET UP BY [facility]. W/C TO [facility].
== END 2022-09-18 13:37 | disposition home health service (06) | DRG 95 ==
LOC: ER 11:26 → MEDS 17:51
PROVIDERS: Emergency Medicine; Family Medicine; Student in an Organized Health Care Education/Training Program; ADMIT Internal Medicine
PROC: 009U3ZX Drainage of Spinal Canal, Percutaneous Approach, Diagnostic (ICD-10-PCS; principal; 2022-09-11)
DX: G04.2 Bacterial meningoencephalitis and meningomyelitis, not elsewhere classified (principal); E66.2 Morbid (severe) obesity with alveolar hypoventilation; J98.11 Atelectasis; E83.39 Other disorders of phosphorus metabolism; E83.42 Hypomagnesemia; Z20.822 Contact with and (suspected) exposure to COVID-19; B96.20 Unspecified Escherichia coli [E. coli] as the cause of diseases classified elsewhere; M35.00 Sjogren syndrome, unspecified; M06.9 Rheumatoid arthritis, unspecified; G43.909 Migraine, unspecified, not intractable, without status migrainosus; E87.6 Hypokalemia; K21.9 Gastro-esophageal reflux disease without esophagitis; M79.7 Fibromyalgia; F41.9 Anxiety disorder, unspecified; J45.909 Unspecified asthma, uncomplicated; Z68.31 Body mass index [BMI] 31.0-31.9, adult; Z90.89 Acquired absence of other organs; Z90.710 Acquired absence of both cervix and uterus; Z90.722 Acquired absence of ovaries, bilateral; Z87.891 Personal history of nicotine dependence; Z88.0 Allergy status to penicillin; Z88.8 Allergy status to other drugs, medicaments and biological substances; Z79.899 Other long term (current) drug therapy
CPT/HCPCS: 0241U; 36415; 62270; 71046; 80048; 80053; 80069; 81001; 82945; 83735; 84100; 84157; 84703; 85025; 87070; 87086; 87205; 87483; 89051; 94761; 94762; 96374-59; 96375-59; 99284-25; A9270; C1751; J0696; J1650; J1885; J2270; J2405; J2550; J3010; J3475; J7030; J7040; J7060

== ENCOUNTER 2022-09-20 13:37 | Observation (INO) | payer OTHER ==
[~2022-09-20] VITALS: Ht 157.5 cm; Wt 81.0 kg
[~2022-09-20 13:37] MED LIST changes: +Atarax10 MG PO; +CEFTRIAXONE2 G1 IV; +Celexa20 MG PO; +ONDA4ODT MM; +TRAM50 PO; +VISBIOME 112.51 EACH PO; +Ventolin/Prove6.7 GM INH
[2022-09-21 05:23] LABS: BASOPHILS ABSOLUTE AUTO 0.03 K/mm3 (0.00-0.23); BASOPHILS PERCENT AUTO 0 % (0-2); EOSINOPHILS ABSOLUTE AUTO 0.15 K/mm3 (0.00-0.68); EOSINOPHILS PERCENT AUTO 2 % (0-6); Hematocrit 32.4 % (33.0-51.0); Hemoglobin 10.4 g/dL (11.5-16.0); IMMATURE GRAN ABSOLUTE AUTO 0.16 K/mm3 (0.00-0.10); IMMATURE GRAN PERCENT AUTO 2 % (0-1); LYMPHOCYTES ABSOLUTE AUTO 1.59 K/mm3 (0.84-5.20); LYMPHOCYTES PERCENT AUTO 24 % (21-46); MONOCYTES ABSOLUTE AUTO 0.39 K/mm3 (0.16-1.47); MONOCYTES PERCENT AUTO 6 % (4-13); Mean Corpuscular HGB 27.3 pg (26.0-34.0); Mean Corpuscular HGB Conc 32.1 g/dL (31.5-36.5); Mean Corpuscular Volume 85 fL (80-100); Mean Platelet Volume 9.7 fL (9.1-12.4); NEUTROPHILS ABSOLUTE AUTO 4.45 K/mm3 (1.96-9.15); NEUTROPHILS PERCENT AUTO 66 % (41-73); Platelet Count 339 K/mm3 (150-400); RDW Coefficient Variation 12.6 % (11.7-14.2); RDW Standard Deviation 38.8 fL (35.1-46.3); Red Blood Cell Count 3.81 M/mm3 (3.80-5.20); White Blood Cell Count 6.77 K/mm3 (4.00-11.30)
--- NOTE | 2022-09-21 05:37 | NUR ---
SHIFT SUMMARY PATIENT ADMITTED FROM ER AROUND MIDNIGHT. PATIENT SETTLED INTO ROOM. PATIENT ORIENTED TO CALL LIGHT AND TV CONTROL. PATIENT IS IND IN THE ROOM. PATIENT HAS POWERGLIDE TO MANDI, PLACED IN ER. PATIENT ADMISSION COMPLETE. PATIENT AT BEDSIDE. PATIENT MEDICATED X1 FOR PAIN. PATIENT DENIES NAUSEA AND SHORTNESS OF BREATH. PATIENT SLIGHTLY ANXIOUS, PATIENT TAKES ANTI-ANXIETY MEDICATION AT HOME. NOTIFIED, NEW ORDERS FOR HOME DOSE OF ATARAX. PATIENT SLEPT ON AND OFF SINCE ADMISSION. PATIENT EATING AND DRINKING WELL. PATIENT IS PLEASANT AND COOPERATIVE WITH CARE.
[2022-09-21 05:54] LABS: Albumin, Blood 2.6 g/dL (3.4-5.0); Albumin/Globulin Ratio 0.6 (0.8-1.8); Bilirubin, Total 0.2 mg/dL (0.1-1.0); Bun/Creatinine Ratio 13.8 (12.0-20.0); Calcium, Blood 8.8 mg/dL (8.5-10.1); Creatinine, Blood 0.65 mg/dL (0.40-1.00); Globulin, Blood 4.2 g/dL (2.2-4.0); Potassium, Blood 3.3 mmol/L (3.5-5.5); Total Protein, Blood 6.8 g/dL (6.4-8.2)
--- NOTE | 2022-09-21 16:49 | NUR ---
DISCHARGE SUMMARY: PT A&O X4. PT EDUCATED ON HOME IV ABX ADMINISTRATION AND POWERGLIDE CARE. PT RECEVIED EDUCATIONAL HANDOUTS FOR SPINAL PUNCTURE PRECEDURE SIGNS AND SYMPTOMS. PT WILL DC WITH POWERGLIDE IN PLACE, FUSHED WITH 10ML NS WITHOUT DIFFICULTY OR PAIN. PT PERSONAL BELONGINGS PACKED BY AND HERSELF. PT ESCORTED VIA WC WITH BY REX MARCUM.
== END 2022-09-21 18:00 | disposition home or self-care (01) ==
LOC: ER 13:37 → MEDS 13:38
PROVIDERS: ADMIT Internal Medicine
DX: R51.9 Headache, unspecified (principal); G00.8 Other bacterial meningitis; B96.20 Unspecified Escherichia coli [E. coli] as the cause of diseases classified elsewhere; R06.00 Dyspnea, unspecified; F41.9 Anxiety disorder, unspecified; K21.9 Gastro-esophageal reflux disease without esophagitis; Z88.0 Allergy status to penicillin; Z88.8 Allergy status to other drugs, medicaments and biological substances; Z79.899 Other long term (current) drug therapy
CPT/HCPCS: 36415; 80053; 85025; 96361; 96376; A9270; G0378; J0696; J1885; J2405; J3010; J7030

== ENCOUNTER → 2022-09-27 | Outpatient (CLI) | payer OTHER ==
[2022-09-27 15:51] LABS: BASOPHILS ABSOLUTE AUTO 0.03 K/mm3 (0.00-0.23); BASOPHILS PERCENT AUTO 1 % (0-2); EOSINOPHILS ABSOLUTE AUTO 0.08 K/mm3 (0.00-0.68); EOSINOPHILS PERCENT AUTO 2 % (0-6); Hematocrit 37.8 % (33.0-51.0); Hemoglobin 11.8 g/dL (11.5-16.0); IMMATURE GRAN ABSOLUTE AUTO 0.02 K/mm3 (0.00-0.10); IMMATURE GRAN PERCENT AUTO 0 % (0-1); LYMPHOCYTES ABSOLUTE AUTO 1.19 K/mm3 (0.84-5.20); LYMPHOCYTES PERCENT AUTO 22 % (21-46); MONOCYTES PERCENT AUTO 6 % (4-13); Mean Corpuscular HGB 26.8 pg (26.0-34.0); Mean Corpuscular HGB Conc 31.2 g/dL (31.5-36.5); Mean Corpuscular Volume 86 fL (80-100); Mean Platelet Volume 10.9 fL (9.1-12.4); NEUTROPHILS ABSOLUTE AUTO 3.82 K/mm3 (1.96-9.15); NEUTROPHILS PERCENT AUTO 70 % (41-73); Platelet Count 310 K/mm3 (150-400); RDW Coefficient Variation 12.4 % (11.7-14.2); RDW Standard Deviation 38.8 fL (35.1-46.3); White Blood Cell Count 5.44 K/mm3 (4.00-11.30)
[2022-09-27 18:01] LABS: Bun/Creatinine Ratio 16.6 (12.0-20.0); Calcium, Blood 9.7 mg/dL (8.5-10.1); Creatinine, Blood 0.66 mg/dL (0.40-1.00)
== END | disposition home or self-care (01) ==
LOC: LAB 13:30 → LAB SHORT 13:30
PROVIDERS: Hospitalist
DX: G03.9 Meningitis, unspecified (principal); B96.20 Unspecified Escherichia coli [E. coli] as the cause of diseases classified elsewhere; R48.8 Other symbolic dysfunctions
CPT/HCPCS: 80048; 85025

== ENCOUNTER → 2022-10-04 | Outpatient (CLI) | payer OTHER ==
[~2022-10-04] MED LIST changes: +XARELTO20 MG PO
[2022-10-04 16:00] LABS: BASOPHILS ABSOLUTE AUTO 0.02 K/mm3 (0.00-0.23); BASOPHILS PERCENT AUTO 0 % (0-2); EOSINOPHILS ABSOLUTE AUTO 0.09 K/mm3 (0.00-0.68); EOSINOPHILS PERCENT AUTO 1 % (0-6); Hematocrit 33.2 % (33.0-51.0); Hemoglobin 10.8 g/dL (11.5-16.0); IMMATURE GRAN ABSOLUTE AUTO 0.01 K/mm3 (0.00-0.10); IMMATURE GRAN PERCENT AUTO 0 % (0-1); LYMPHOCYTES ABSOLUTE AUTO 1.04 K/mm3 (0.84-5.20); LYMPHOCYTES PERCENT AUTO 15 % (21-46); MONOCYTES PERCENT AUTO 7 % (4-13); Mean Corpuscular HGB 27.2 pg (26.0-34.0); Mean Corpuscular HGB Conc 32.5 g/dL (31.5-36.5); Mean Corpuscular Volume 84 fL (80-100); Mean Platelet Volume 10.7 fL (9.1-12.4); NEUTROPHILS ABSOLUTE AUTO 5.22 K/mm3 (1.96-9.15); NEUTROPHILS PERCENT AUTO 76 % (41-73); Platelet Count 245 K/mm3 (150-400); RDW Coefficient Variation 12.7 % (11.7-14.2); RDW Standard Deviation 38.4 fL (35.1-46.3); Red Blood Cell Count 3.97 M/mm3 (3.80-5.20); White Blood Cell Count 6.88 K/mm3 (4.00-11.30)
[2022-10-04 16:44] LABS: Bun/Creatinine Ratio 19.2 (12.0-20.0); Calcium, Blood 9.2 mg/dL (8.5-10.1); Creatinine, Blood 0.62 mg/dL (0.40-1.00); Potassium, Blood 4.2 mmol/L (3.5-5.5)
== END | disposition home or self-care (01) ==
LOC: LAB SHORT 14:46 → LAB 14:46
PROVIDERS: Hospitalist
DX: G03.9 Meningitis, unspecified (principal); B96.20 Unspecified Escherichia coli [E. coli] as the cause of diseases classified elsewhere; R48.8 Other symbolic dysfunctions
CPT/HCPCS: 80048; 85025

== ENCOUNTER 2022-10-05 11:01 | Day surgery (SDC) | payer OTHER ==
[~2022-10-05 11:01] MED LIST changes: -XARELTO20 MG PO
== END 2022-10-05 15:50 | disposition home or self-care (01) ==
LOC: ATC 11:01
DX: G00.8 Other bacterial meningitis (principal); K21.9 Gastro-esophageal reflux disease without esophagitis; B96.20 Unspecified Escherichia coli [E. coli] as the cause of diseases classified elsewhere; Z88.0 Allergy status to penicillin; Z88.8 Allergy status to other drugs, medicaments and biological substances
CPT/HCPCS: 99214; C1751

== ENCOUNTER 2022-10-08 10:39 | Emergency (ER) | payer OTHER ==
[~2022-10-08] VITALS: Ht 160 cm; Wt 78.5 kg
[2022-10-08] MEDS ORDERED: XARELTO20 MG PO (13:14)
== END 2022-10-08 14:20 | disposition home or self-care (01) ==
LOC: ER 10:39
DX: I82.622 Acute embolism and thrombosis of deep veins of left upper extremity (principal); Z79.899 Other long term (current) drug therapy; Z88.0 Allergy status to penicillin; Z88.8 Allergy status to other drugs, medicaments and biological substances; Z87.891 Personal history of nicotine dependence
CPT/HCPCS: 71045; 93971

== ENCOUNTER → 2022-10-11 | Outpatient (CLI) | payer OTHER ==
[~2022-10-11] MED LIST changes: +XARELTO20 MG PO
[2022-10-11 15:02] LABS: BASOPHILS ABSOLUTE AUTO 0.02 K/mm3 (0.00-0.23); BASOPHILS PERCENT AUTO 0 % (0-2); EOSINOPHILS ABSOLUTE AUTO 0.16 K/mm3 (0.00-0.68); EOSINOPHILS PERCENT AUTO 3 % (0-6); Hematocrit 31.1 % (33.0-51.0); Hemoglobin 10.2 g/dL (11.5-16.0); IMMATURE GRAN ABSOLUTE AUTO 0.01 K/mm3 (0.00-0.10); IMMATURE GRAN PERCENT AUTO 0 % (0-1); LYMPHOCYTES ABSOLUTE AUTO 1.17 K/mm3 (0.84-5.20); LYMPHOCYTES PERCENT AUTO 19 % (21-46); MONOCYTES PERCENT AUTO 7 % (4-13); Mean Corpuscular HGB 27.4 pg (26.0-34.0); Mean Corpuscular HGB Conc 32.8 g/dL (31.5-36.5); Mean Corpuscular Volume 84 fL (80-100); Mean Platelet Volume 10.4 fL (9.1-12.4); NEUTROPHILS ABSOLUTE AUTO 4.28 K/mm3 (1.96-9.15); NEUTROPHILS PERCENT AUTO 71 % (41-73); Platelet Count 270 K/mm3 (150-400); RDW Coefficient Variation 13.1 % (11.7-14.2); RDW Standard Deviation 39.6 fL (35.1-46.3); Red Blood Cell Count 3.72 M/mm3 (3.80-5.20); White Blood Cell Count 6.04 K/mm3 (4.00-11.30)
[2022-10-11 15:23] LABS: Bun/Creatinine Ratio 18.8 (12.0-20.0); Calcium, Blood 8.5 mg/dL (8.5-10.1); Creatinine, Blood 0.58 mg/dL (0.40-1.00)
== END | disposition home or self-care (01) ==
LOC: LAB SHORT 14:49 → LAB 14:49
PROVIDERS: Hospitalist
DX: G03.9 Meningitis, unspecified (principal); B96.20 Unspecified Escherichia coli [E. coli] as the cause of diseases classified elsewhere; R48.8 Other symbolic dysfunctions
CPT/HCPCS: 80048; 85025

== ENCOUNTER → 2022-10-18 | Outpatient (CLI) | payer OTHER ==
[2022-10-18 19:23] LABS: BASOPHILS ABSOLUTE AUTO 0.02 K/mm3 (0.00-0.23); BASOPHILS PERCENT AUTO 0 % (0-2); EOSINOPHILS ABSOLUTE AUTO 0.28 K/mm3 (0.00-0.68); EOSINOPHILS PERCENT AUTO 5 % (0-6); Hematocrit 33.1 % (33.0-51.0); Hemoglobin 10.9 g/dL (11.5-16.0); IMMATURE GRAN ABSOLUTE AUTO 0.02 K/mm3 (0.00-0.10); IMMATURE GRAN PERCENT AUTO 0 % (0-1); LYMPHOCYTES ABSOLUTE AUTO 1.12 K/mm3 (0.84-5.20); LYMPHOCYTES PERCENT AUTO 18 % (21-46); MONOCYTES ABSOLUTE AUTO 0.41 K/mm3 (0.16-1.47); MONOCYTES PERCENT AUTO 7 % (4-13); Mean Corpuscular HGB 27.2 pg (26.0-34.0); Mean Corpuscular HGB Conc 32.9 g/dL (31.5-36.5); Mean Corpuscular Volume 83 fL (80-100); Mean Platelet Volume 10.5 fL (9.1-12.4); NEUTROPHILS ABSOLUTE AUTO 4.27 K/mm3 (1.96-9.15); NEUTROPHILS PERCENT AUTO 70 % (41-73); Platelet Count 303 K/mm3 (150-400); RDW Coefficient Variation 13.2 % (11.7-14.2); RDW Standard Deviation 39.5 fL (35.1-46.3); Red Blood Cell Count 4.01 M/mm3 (3.80-5.20); White Blood Cell Count 6.12 K/mm3 (4.00-11.30)
[2022-10-18 19:51] LABS: Bun/Creatinine Ratio 18.9 (12.0-20.0); Calcium, Blood 8.9 mg/dL (8.5-10.1); Creatinine, Blood 0.58 mg/dL (0.40-1.00); Potassium, Blood 3.6 mmol/L (3.5-5.5)
== END | disposition home or self-care (01) ==
LOC: LAB SHORT 17:10 → LAB 17:10
PROVIDERS: Hospitalist
DX: G03.9 Meningitis, unspecified (principal); R48.8 Other symbolic dysfunctions; B96.20 Unspecified Escherichia coli [E. coli] as the cause of diseases classified elsewhere
CPT/HCPCS: 80048; 85025

== ENCOUNTER → 2023-01-18 | Outpatient (CLI) | payer OTHER ==
[2023-01-19 13:54] LABS: Candida species (DNA Probe) Negative (NEGATIVE); G. vaginalis (DNA Probe) Positive (NEGATIVE); T. vaginalis (DNA Probe) Negative (NEGATIVE)
== END | disposition home or self-care (01) ==
LOC: LAB 12:52 → LAB SHORT 12:52
PROVIDERS: Family Medicine
DX: N89.8 Other specified noninflammatory disorders of vagina (principal)
CPT/HCPCS: 87480; 87510; 87660

== ENCOUNTER → 2025-06-10 | Outpatient (CLI) | payer OTHER | END | disposition home or self-care (01) | LOC: LAB 13:08 → LAB SHORT 13:08 | PROVIDERS: Obstetrics & Gynecology | DX: Z01.419 Encounter for gynecological examination (general) (routine) without abnormal findings (principal) | CPT/HCPCS: 87624; G0123 ==